=== PATIENT | male | born 1965 | race Caucasian/White ===

== ENCOUNTER → 2017-03-14 | Outpatient (CLI) | payer MEDICAID ==
[~2017-03-14] MED LIST: ASPI-621 PO; SIMV20TA PO
== END | disposition home or self-care (01) ==
LOC: CFH 12:38
PROVIDERS: ATTEND Internal Medicine Cardiovascular Disease
DX: I51.7 Cardiomegaly (principal); I63.9 Cerebral infarction, unspecified
CPT/HCPCS: 93306